=== PATIENT | female | born 1990 | race Caucasian/White ===

== ENCOUNTER 2016-07-29 21:10 | Emergency (ER) | payer OTHER ==
[2016-07-29 21:31] VITALS: BP 113/71; PULSE 70; RESP 18; TEMP 96.8
--- NOTE | 2016-07-29 21:50 | XR ---
Left hand HISTORY: Trauma and pain Reviews of the left hand No comparisons Bone mineralization, joint spaces and alignment are maintained IMPRESSION: No fracture or dislocation.
--- NOTE | 2016-07-29 22:00 | ED ---
Upper Extremity HPI - General Chief Complaint: Extremity Injury, Upper Stated Complaint: hand injury Time Seen by Provider: 07/29/16 21:32 Source: patient Mode of arrival: ambulatory Limitations: no limitations - History of Present Illness Initial Comments: Patient is a right-handed 25-year-old white female presenting to the emergency department with complaints of left hand pain. Patient states she was doing yard work at 11 AM this morning when a log rolled on her hand. Patient states that throughout the day the pain became aggressively worse and she wanted to make sure nothing was broken. Patient denies previous trauma or surgery to left upper extremity. Patient states she took some Motrin about 1:00 this afternoon with relief. Patient currently rates pain 6 out of 10, described as sore, exacerbated with movement and palpation, relieved with rest, denies numbness or tingling. Handedness: right Place: outdoors Severity scale (1-10): 7 Improves With: immobilization Worsens With: movement of extremity Associated Symptoms: denies other symptoms - Related Data Home Medications Medication Instructions Recorded Confirmed Levothyroxine Sodium [Synthroid] 100 mcg PO DAILY 06/08/14 04/20/15 Dextroamphetamine/Amphetamine 20 mg PO BID 04/20/15 04/20/15 [Adderall] Previous Rx's Medication Instructions Recorded Benzonatate [Tessalon] 200 mg PO TID PRN #20 cap 04/20/15 Allergies Allergy/AdvReac Type Severity Reaction Status Date / Time prochlorperazine maleate Allergy Unknown Verified 07/29/16 21:32 [From Compazine] Review of Systems ROS Statement: Those systems with pertinent positive or pertinent negative responses have been documented in the HPI. ROS Other: All systems not noted in ROS Statement are negative. Past Medical History Past Medical History: Thyroid Disorder Additional Past Medical History / Comment(s): Mild Anemia. known B-thalasemia minor. Rubella Non-Immune History of Any Multi-Drug Resistant Organisms: None Reported Past Surgical History: Cholecystectomy Additional Past Surgical History / Comment(s): Thyroidectomy Past Psychological History: ADD/ADHD, Anxiety Smoking Status: Never smoker Past Alcohol Use History: Occasional Past Drug Use History: None Reported General Exam - General Exam Comments Initial Comments: GENERAL: Pt awake and alert, well-appearing, well-nourished, and in no acute distress. HEAD: Atraumatic, normocephalic. EYES: Pupils equal, round, and reactive to light, sclera anicteric, conjunctiva are normal. ENT: Oropharynx clear without exudates. Moist mucous membranes. NECK:Normal range of motion, supple without lymphadenopathy or JVD. LUNGS: Breath sounds clear to auscultation bilaterally. No wheezes, rales, or rhonchi. HEART: Heart S1, S2, no S3 or S4. Regular rate and rhythm. No murmurs, rubs or gallops. ABDOMEN: Soft, nontender, nondistended, normoactive bowel sounds. No guarding, no rebound. No masses or organomegaly appreciated. EXTREMITIES: Palpable peripheral pulses. Ecchymosis noted to the dorsal left hand. NEUROLOGICAL: Pt oriented x 3. Cranial nerves II through XII grossly intact. Strength and sensation grossly intact. PSYCH: Normal mood, normal affect. SKIN: Warm, dry, intact. Limitations: no limitations Left Forearm Wrist exam: Present: normal inspection, full ROM. Absent: tenderness, swelling Hand Wrist exam: Present: full ROM, tenderness, swelling, ecchymosis. Absent: deformity, dislocation, erythema Neuro motor exam: Present: wrist extension intact, thumb opposition intact, thumb IP flexion intact, thumb adduction intact, fingers 2-5 abduction intact Neurosensory exam: Present: 2-point discrimination, radial nerve intact, ulnar nerve intact, median nerve intact Vascular: Present: vascular compromise, normal capillary refill, radial pulse, brachial pulse, ulnar pulse Course Vital Signs 07/29/16 21:27 Temperature 96.8 F L Pulse Rate 70 Respiratory 18 Rate Blood Pressure 113/71 O2 Sat by Pulse 100 Oximetry Medical Decision Making - Medical Decision Making Contusion to left hand. X-ray of left hand negative for fracture or dislocation. Patient instructed to follow-up with primary care physician or orthopedic surgeon if symptoms do not improve or get worse. Discharge instructions and return parameters reviewed with patient. Patient agrees with treatment plan. - Radiology Data Radiology results: report reviewed X-ray of left hand: No fracture or dislocation. As read by radiologist. Disposition Clinical Impression: Contusion of left hand Disposition: HOME SELF-CARE Condition: Good Instructions: Contusion in Adults (ED) Additional Instructions: Continue Motrin and Tylenol for swelling or pain. May continue ice 4 times a day for 10-15 minutes the next 2 days to decrease swelling. Follow-up with primary care physician as needed. Please return to the emergency department with any worsening symptoms. Referrals: Marco Amato MD [Primary Care Provider] - 1-2 days Shravan Vick DO [Doctor of Osteopathic Medicine] - 1-2 days (Follow-up as needed) Time of Disposition: 21:59
== END 2016-07-29 22:06 | disposition home or self-care (01) ==
LOC: EC 21:10
DX: S60.222A Contusion of left hand, initial encounter (principal); E07.9 Disorder of thyroid, unspecified; F90.9 Attention-deficit hyperactivity disorder, unspecified type; Z79.899 Other long term (current) drug therapy; Z88.8 Allergy status to other drugs, medicaments and biological substances; W20.8XXA Other cause of strike by thrown, projected or falling object, initial encounter; Y92.096 Garden or yard of other non-institutional residence as the place of occurrence of the external cause; Y93.H2 Activity, gardening and landscaping
CPT/HCPCS: 99283

== ENCOUNTER → 2017-07-18 | Outpatient (CLI) | payer OTHER ==
[2017-07-18 20:19] LABS: Appearance,Urine Cloudy (Clear); Bacteria,Urine Rare /hpf; Bilirubin,Urine Negative (Negative); Blood,Urine Negative (Negative); Color,Urine Yellow; Glucose,Urine (UA) Negative (Negative); Ketones,Urine Negative (Negative); Leukocyte Esterase,Urine Negative (Negative); Mucus,Urine Rare /hpf; Nitrite,Urine Negative (Negative); PH, Urine 5.5 (5.0-8.0); Protein,Urine Negative (Negative); RBC,Urine 1 /hpf (0-5); Specific Gravity,Urine 1.018 (1.001-1.035); Squamous Epithelial Cell,Urine 10 /hpf (0-4); Urobilinogen,Urine <2.0 mg/dL (<2.0); WBC,Urine 1 /hpf (0-5)
[2017-07-18 20:56] VITALS: BP 112/67; PULSE 78; RESP 16; TEMP 97
--- NOTE | 2017-08-11 10:21 | P.MSEPDOC ---
Presenting Problems - Arrival Data Date of Arrival on Unit: 07/18/17 Time of Arrival on Unit: 19:50 Mode of Transport: Ambulatory - Complaint Comment: Complaints of contractions. Medical History - Information : 2 Para: 1 Term: 1 : 0 Abortions: Spontaneous or Elective: 0 Number of Living Children: 1 - Gestational Age Gestational Age by VLADISLAV (wks/days): 24 Weeks and 1 Days Review of Systems - Review of Systems Constitutional: No problems Breast: No problems ENT: No problems Cardiovascular: No problems Respiratory: No problems Gastrointestinal: No problems Genitourinary: No problems Musculoskeletal: No problems Neurological: No problems Skin: No problems Vital Signs - Temperature Temperature: 97 F Temperature Source: Temporal Artery Scan - Pulse Right Brachial Pulse Rate: 78 Pulse Assessment Method: Automatic Cuff - Respirations Respiratory Rate: 16 Oxygen Delivery Method: Room Air - Blood Pressure Right Arm Blood Pressure: 112/67 Blood Pressure Mean: 82 Blood Pressure Source: Automatic Cuff Medical Screen Scoring (Pre) - Cervical Exam Dilation: Exam Deferred Effacement: Exam Deferred Membranes: Intact - Uterine Contractions Frequency: N/A Duration: N/A Intensity: N/A - Maternal Vital Signs Maternal Temperature: N/A Maternal Blood Pressure: N/A Signs of Preeclampsia: N/A Maternal Respirations: N/A - Pain Assessment Pain Scale Used: Numeric (1 - 10) Pain Intensity: 0 - Assessment Baseline FHR: 140 Heart Rate - NICHD Category: Category I (Normal) = 0 Position: N/A Station: N/A - Total Score Total Score (Pre): 0 - Level of Risk Level of Risk: Low (0-5) Physician Notification (Pre) - Physician Notified Physician Notified Date: 07/18/17 Physician Notified Time: 20:28 Physician/Practitioner Notifed:: Dr. Griffith Spoke With: Dr. Griffith New Order Received: Yes - Notification Comment Comment: agree with RNs assessment Disposition - Disposition OB Disposition: Discharge to home, Written follow up instructions reviewed Discharge Date: 07/18/17 Discharge Time: 20:30 I agree with the RN Medical Screening Exam: Yes Risk & Benefit of care provided described in d/c instruction: Yes Diagnosis: RELATED CONDITIONS, UNSPECIFIED, SECOND TRIMESTER
== END | disposition home or self-care (01) ==
LOC: FBPOP 19:50
PROVIDERS: ATTEND Obstetrics & Gynecology
DX: O26.92 Pregnancy related conditions, unspecified, second trimester (principal); Z3A.24 24 weeks gestation of pregnancy
CPT/HCPCS: 81001; G0463; 99213

== ENCOUNTER 2017-07-29 08:59 | Outpatient (CLI) | payer OTHER ==
[2017-07-29 10:30] VITALS: BP 122/62; PULSE 80; RESP 16; TEMP 97.6
--- NOTE | 2017-08-11 10:27 | P.MSEPDOC ---
Presenting Problems - Arrival Data Date of Arrival on Unit: 07/29/17 Time of Arrival on Unit: 09:06 Mode of Transport: Wheelchair - Complaint OB-Reason for Admission/Chief Complaint: Pain Comment: lower abd pain and pressure. 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 pain scale 10 today. on pastc/s incision line incision line Vital Signs - Temperature Temperature: 97.6 F Temperature Source: Tympanic - Pulse Right Radial Pulse Rate: 80 Pulse Assessment Method: Automatic Cuff - Respirations Respiratory Rate: 16 Oxygen Delivery Method: Room Air - Blood Pressure Right Arm Blood Pressure: 122/62 Blood Pressure Mean: 82 Blood Pressure Source: Automatic Cuff Medical Screen Scoring (Pre) - Cervical Exam Dilation: Exam Deferred - Uterine Contractions Frequency: N/A - Maternal Vital Signs Maternal Temperature: N/A Maternal Blood Pressure: N/A Signs of Preeclampsia: N/A Maternal Respirations: N/A - Pain Assessment Pain Location and Character: Lower, Abdomen Pain Scale Used: Numeric (1 - 10) Pain Description: *Acute, Burning, Pressure Pain Frequency: Constant Pain Duration: 10 Pain Behavior: Facial Grimacing, Guarding, Moving Slowly Pain Aggravating Factors: Standing, Walking Pharmacological Interventions: Discuss Pain Med Options, PRN Medication - Maternal Trauma Maternal Trauma: N/A - Assessment Baseline FHR: 140 Heart Rate - NICHD Category: Category I (Normal) = 0 NST: Reactive - Total Score Total Score (Pre): 0 - Level of Risk Level of Risk: Low (0-5) Physician Notification (Pre) - Physician Notified Physician Notified Date: 07/29/17 Physician Notified Time: 10:10 Physician/Practitioner Notifed:: beena Spoke With: beena New Order Received: Yes - Notification Comment Comment: home off work next couple of days. if not emproving to call office or return to triage. warm to lower abd, tylenol prn Disposition - Disposition OB Disposition: Discharge to home Discharge Date: 07/29/17 Discharge Time: 10:20 I agree with the RN Medical Screening Exam: Yes Risk & Benefit of care provided described in d/c instruction: Yes Diagnosis: RELATED CONDITIONS, UNSPECIFIED, SECOND TRIMESTER
== END 2017-07-29 10:20 | disposition home or self-care (01) ==
LOC: FBPOP 08:59
PROVIDERS: ATTEND Obstetrics & Gynecology
DX: O26.93 Pregnancy related conditions, unspecified, third trimester (principal); R10.30 Lower abdominal pain, unspecified; Z3A.25 25 weeks gestation of pregnancy
CPT/HCPCS: 99213

== ENCOUNTER 2017-10-10 16:25 | Outpatient (CLI) | payer OTHER ==
[2017-10-10 16:54] VITALS: BP 117/71; PULSE 99; RESP 16; TEMP 97.4
--- NOTE | 2017-11-05 12:25 | P.MSEPDOC ---
Presenting Problems - Arrival Data Date of Arrival on Unit: 10/10/17 Time of Arrival on Unit: 16:30 Mode of Transport: Wheelchair - Complaint OB-Reason for Admission/Chief Complaint: Possible Onset of Labor Medical History - Information : 2 Para: 1 Term: 1 : 0 Abortions: Spontaneous or Elective: 0 Number of Living Children: 1 - Gestational Age Gestational Age by VLADISLAV (wks/days): 36 Weeks and 1 Days - History Complications: Prior Review of Systems - Review of Systems Constitutional: No problems Breast: No problems ENT: No problems Cardiovascular: No problems Respiratory: No problems Gastrointestinal: No problems Genitourinary: No problems Musculoskeletal: No problems Neurological: No problems Skin: No problems Vital Signs - Temperature Temperature: 97.4 F Temperature Source: Temporal Artery Scan - Pulse Right Sitting Brachial Pulse Rate: 99 Pulse Assessment Method: Pulse Oximetry - Respirations Respiratory Rate: 16 Oxygen Delivery Method: Room Air O2 Sat by Pulse Oximetry: 98 - Blood Pressure Right Arm Sitting Blood Pressure: 117/71 Blood Pressure Mean: 86 Blood Pressure Source: Automatic Cuff Medical Screen Scoring (Pre) - Cervical Exam Dilation: 0 cm = 0 Membranes: Intact - Uterine Contractions Frequency: > 5 minutes apart = 1 Duration: N/A Intensity: N/A - Maternal Vital Signs Maternal Temperature: N/A Maternal Blood Pressure: N/A Signs of Preeclampsia: N/A Maternal Respirations: N/A - Pain Assessment Pain Location and Character: Lower, Abdomen Pain Scale Used: Numeric (1 - 10) Pain Intensity: 9 Pain Management Goal: 0 Pain Description: Cramping Pain Radiation Location: 0 Pain Frequency: Occasional Pain Duration: 2 Pain Duration Units: Days Pain Behavior: Facial Grimacing Effects of Pain: 0 Pain Aggravating Factors: None - Maternal Trauma Maternal Trauma: N/A - Assessment Baseline FHR: 135 Heart Rate - NICHD Category: Category I (Normal) = 0 Position: N/A Station: N/A - Total Score Total Score (Pre): 1 - Level of Risk Level of Risk: Low (0-5) Physician Notification (Pre) - Physician Notified Physician Notified Date: 10/10/17 Physician Notified Time: 17:24 Physician/Practitioner Notifed:: Dr North Spoke With: Dr North New Order Received: Yes - Notification Comment Comment: orders for discharge at this time, pelvic rest until next OB appt., increase oral hydration. Disposition - Disposition OB Disposition: Discharge to home Discharge Date: 10/10/17 Discharge Time: 17:33 I agree with the RN Medical Screening Exam: Yes Risk & Benefit of care provided described in d/c instruction: Yes Diagnosis: RELATED CONDITIONS, UNSPECIFIED, THIRD TRIMESTER
== END 2017-10-10 17:33 | disposition home or self-care (01) ==
LOC: FBPOP 16:25
PROVIDERS: ATTEND Obstetrics & Gynecology
DX: O26.93 Pregnancy related conditions, unspecified, third trimester (principal); Z3A.36 36 weeks gestation of pregnancy
CPT/HCPCS: 59025; G0463; 99213

== ENCOUNTER 2017-10-16 12:09 | Outpatient (CLI) | payer OTHER ==
[2017-10-16 12:49] LABS: Appearance,Urine Cloudy (Clear); Bacteria,Urine Occasional /hpf; Bilirubin,Urine Negative (Negative); Blood,Urine Negative (Negative); Color,Urine Yellow; Glucose,Urine (UA) Negative (Negative); Ketones,Urine Negative (Negative); Leukocyte Esterase,Urine Moderate (Negative); Mucus,Urine Rare /hpf; Nitrite,Urine Negative (Negative); PH, Urine 6.5 (5.0-8.0); Protein,Urine Negative (Negative); RBC,Urine <1 /hpf (0-5); Specific Gravity,Urine 1.015 (1.001-1.035); Squamous Epithelial Cell,Urine 3 /hpf (0-4); Urobilinogen,Urine <2.0 mg/dL (<2.0); WBC,Urine 1 /hpf (0-5)
[2017-10-16 14:13] VITALS: BP 129/69; PULSE 83; RESP 18; TEMP 97.1
--- NOTE | 2017-11-09 12:40 | P.MSEPDOC ---
Presenting Problems - Arrival Data Date of Arrival on Unit: 10/16/17 Time of Arrival on Unit: 12:09 Mode of Transport: Wheelchair - Complaint OB-Reason for Admission/Chief Complaint: Pain Comment: severe back pain Medical History - Information : 3 Para: 1 Term: 1 : 0 Abortions: Spontaneous or Elective: 1 Number of Living Children: 1 - Gestational Age Gestational Age by VLADISLAV (wks/days): 37 Weeks and 0 Days Review of Systems - Review of Systems Constitutional: No problems Breast: No problems ENT: No problems Cardiovascular: No problems Respiratory: No problems Gastrointestinal: No problems Genitourinary: No problems Musculoskeletal: No problems Neurological: No problems Skin: No problems Vital Signs - Temperature Temperature: 97.1 F Temperature Source: Temporal Artery Scan - Pulse Right Brachial Pulse Rate: 83 - Respirations Respiratory Rate: 18 Oxygen Delivery Method: Standby - Blood Pressure Right Arm Blood Pressure: 129/69 Blood Pressure Mean: 89 Medical Screen Scoring (Pre) - Cervical Exam Dilation: Exam Deferred Effacement: Exam Deferred Membranes: Intact - Uterine Contractions Frequency: N/A Duration: N/A Intensity: N/A - Maternal Vital Signs Maternal Temperature: N/A Signs of Preeclampsia: N/A Maternal Respirations: N/A - Pain Assessment Pain Location and Character: Back Pain Scale Used: Numeric (1 - 10) Pain Intensity: 10 Pain Management Goal: 4 Pain Description: *Acute Pain Frequency: Constant Pain Duration: 1 Pain Duration Units: Days Pain Behavior: Fidgeting, Vocalization Pain Aggravating Factors: Activity Non-Pharmacological Interventions: Heat, Meditation - Maternal Trauma Maternal Trauma: N/A - Assessment Baseline FHR: 135 Heart Rate - NICHD Category: Category I (Normal) = 0 NST: Reactive Position: Non-vertex & not laboring = 3 Station: N/A - Total Score Total Score (Pre): 3 - Level of Risk Level of Risk: Low (0-5) Physician Notification (Pre) - Physician Notified Physician Notified Date: 10/16/17 Physician Notified Time: 14:00 Physician/Practitioner Notifed:: Dr. Griffith Spoke With: Dr. Griffith New Order Received: Yes - Notification Comment Comment: Discharge pt home, use heat and tylenol as needed, try to see chiropractor Disposition - Disposition OB Disposition: Discharge to home, Written follow up instructions reviewed Discharge Date: 10/16/17 Discharge Time: 14:06 I agree with the RN Medical Screening Exam: Yes Risk & Benefit of care provided described in d/c instruction: Yes Diagnosis: RELATED CONDITIONS, UNSPECIFIED, THIRD TRIMESTER
== END 2017-10-16 14:06 | disposition home or self-care (01) ==
LOC: FBPOP 12:09
PROVIDERS: ATTEND Obstetrics & Gynecology
DX: O26.93 Pregnancy related conditions, unspecified, third trimester (principal); Z3A.37 37 weeks gestation of pregnancy
CPT/HCPCS: 59025; 81001; G0463; 99213

== ENCOUNTER 2017-10-30 09:35 | Inpatient (IN) | payer OTHER ==
[2017-10-25 11:33] VITALS: BMI 32.1
[2017-10-30] MEDS ORDERED: CITRIC ACID-SODIUM CITRATE 15 ML CUP PO ONE (10:37)
[2017-10-30] MEDS ORDERED: LACTATED RINGERS 1,000 ML IV ONE (10:37)
[2017-10-30] MEDS ORDERED: ceFAZolin IN SWFI 2 GM/20 ML SYRINGE IVP ONE (10:37)
[2017-10-30] MEDS ORDERED: LACTATED RINGERS 1,000 ML IV SCH ×2 (10:45→13:15)
[2017-10-30 10:50] LABS: Anisocytosis Slight; Basophils % (A) 0 %; Eosinophils # (A) 0.1 k/uL (0-0.7); Eosinophils % (A) 1 %; HCT 28.7 % (34.0-46.0); HGB 8.6 gm/dL (11.4-16.0); Hypochromasia Marked; Lymphocytes # (A) 1.7 k/uL (1.0-4.8); Lymphocytes % (A) 19 %; MCH 18.7 pg (25.0-35.0); MCV 62.4 fL (80.0-100.0); Mean Platelet Volume 6.6; Microcytosis Marked; Monocytes # (A) 0.5 k/uL (0-1.0); Monocytes % (A) 5 %; Neutrophils # (A) 6.2 k/uL (1.3-7.7); Neutrophils % (A) 72 %; Platelet Count 118 k/uL (150-450); Poikilocytosis Moderate; RDW 17.7 % (11.5-15.5); WBC 8.7 k/uL (3.8-10.6)
[2017-10-30] MEDS ORDERED: LACTATED RINGERS 1,000 ML BAG IV ONE (12:02)
[2017-10-30] MEDS ORDERED: NALBUPHINE 10 MG/ML VIAL (10ML MDV) ONE (12:02)
[2017-10-30] MEDS ORDERED: ePHEDrine SULFATE/0.9% NACL/PF 50 MG/5 ML SYRINGE IV ONE (12:02)
[2017-10-30] MEDS ORDERED: METHYLERGONOVINE 0.2 MG/ML 1 ML AMP ONE (12:02)
[2017-10-30] MEDS ORDERED: OXYTOCIN 10 UNIT/ML 1 ML VIAL ONE (12:02)
[2017-10-30] MEDS ORDERED: ONDANSETRON 4 MG/2 ML VIAL ONE (12:02)
[2017-10-30] MEDS ORDERED: SCOPOLAMINE 1.5MG/72HR PATCH TRANSDERM ONE (12:02)
[2017-10-30] MEDS ORDERED: MORPHINE SULFATE (PF) 0.3 MG/0.3 ML SYR ONE (12:02)
[2017-10-30] MEDS ORDERED: diphenhydrAMINE 25 MG CAP PO PRN (13:13)
[2017-10-30] MEDS ORDERED: METOCLOPRAMIDE 5 MG/ML 2 ML VIAL IVP PRN (13:13)
[2017-10-30] MEDS ORDERED: SIMETHICONE 80 MG CHEWABLE PO PRN (13:13)
[2017-10-30] MEDS ORDERED: diphenhydrAMINE 50 MG CAP PO PRN (13:13)
[2017-10-30] MEDS ORDERED: NALOXONE 0.4 MG/ML 1 ML VIAL IV PRN (13:13)
[2017-10-30] MEDS ORDERED: ACETAMINOPHEN TAB 325 MG TAB PO PRN (13:13)
[2017-10-30] MEDS ORDERED: HYDROcodone/APAP 7.5-325MG 1 EACH TAB PO PRN (13:13)
[2017-10-30] MEDS ORDERED: diphenhydrAMINE 50 MG/ML 1 ML VIAL IVP PRN ×2 (13:13)
[2017-10-30] MEDS ORDERED: ONDANSETRON 4 MG/2 ML VIAL IVP PRN (13:13)
[2017-10-30] MEDS ORDERED: ZOLPIDEM 5 MG TAB PO PRN (13:13)
[2017-10-30] MEDS ORDERED: OXYTOCIN 20 UNITS/1000 ML NS 1,000 ML IV SCH (13:15)
--- NOTE | 2017-10-30 13:20 | P.HPOB ---
History of Present Illness H&P Date: 10/30/17 Chief Complaint: 39-0/7 weeks, previous section, undesired fertility The patient is a 26-year-old 3 para 1011 admitted at 39-0/7 weeks as established by 10 week ultrasound. She is admitted for repeat low transverse section with intraoperative bilateral tubal occlusion using Filshie clips. Risks and complications admitted thoroughly discussed. She has signed consent for these procedures in the office. Her has been entirely uncomplicated and group B strep status is negative. She does carry a history of beta thalassemia minor which causes chronic anemia which has continued to be present during the . Obstetrical history: 3 para 1011 with 1 term delivery for arrest of dilation and descent and one early spontaneous AB resulting in D&C. Current statistics are listed in history present illness. EDC of 04/2017 was established by 10 week ultrasound. Laboratory workup demonstrates a blood type of O+ with a negative antibody screen. Rubella status is immune. All other laboratory workup was within normal limits aside from the aforementioned mild anemia. One hour Glucola was normal and group B strep status is negative. Gynecologic history: Unremarkable with no history of any infections to include STDs. Review of Systems Review of systems is confined to history of present illness. Past Medical History Past Medical History: GERD/Reflux, Thyroid Disorder Additional Past Medical History / Comment(s): Mild Anemia. known B-thalasemia minor History of Any Multi-Drug Resistant Organisms: None Reported Past Surgical History: Adenoidectomy, Section, Cholecystectomy, Tonsillectomy Additional Past Surgical History / Comment(s): partial Thyroidectomy Past Anesthesia/Blood Transfusion Reactions: Postoperative Nausea & Vomiting ( PONV) Past Psychological History: ADD/ADHD, Anxiety Smoking Status: Never smoker Past Alcohol Use History: None Reported Past Drug Use History: None Reported - Past Family History Mother Family Medical History: No Reported History Medications and Allergies Home Medications Medication Instructions Recorded Confirmed Type Omeprazole [PriLOSEC] 40 mg PO DAILY 10/10/17 10/30/17 History Acetaminophen [Tylenol] 500 mg PO Q4-6H PRN 10/30/17 10/30/17 History Allergies Allergy/AdvReac Type Severity Reaction Status Date / Time prochlorperazine maleate Allergy Unknown Verified 10/25/17 11:22 [From Compazine] Exam Vital Signs Temp Pulse Resp BP Pulse Ox 10/30/17 12:59 96.9 F L 85 18 129/61 98 10/30/17 10:29 97.6 F 91 18 98 Intake and Output 10/29/17 10/30/17 10/30/17 22:59 06:59 14:59 Other: Voiding Method Indwelling Catheter In general, this is a well-developed, well-nourished white female in no acute distress. Her heart has a regular rhythm and rate without murmur. Her lungs are clear to auscultation bilaterally in all servin. Her abdomen is gravid, nondistended, has normal active bowel sounds, is soft, nontender, and without any palpable masses aside from uterine fundus. Her extremities are without any cyanosis, clubbing, or significant edema and are nontender to palpation bilaterally. Digital cervical examination is deferred. Results Result Diagrams: 10/30/17 10:33 Abnormal Lab Results - Last 24 Hours (Table) 10/30/17 Range/Units 10:33 Hgb 8.6 L (11.4-16.0) gm/dL Hct 28.7 L (34.0-46.0) % MCV 62.4 L (80.0-100.0) fL MCH 18.7 L (25.0-35.0) pg MCHC 30.0 L (31.0-37.0) g/dL RDW 17.7 H (11.5-15.5) % Plt Count 118 L (150-450) k/uL Assessment and Plan (1) Term Current Visit: Yes Status: Acute Code(s): Z34.80 - ENCOUNTER FOR SUPRVSN OF NORMAL , UNSP TRIMESTER SNOMED Code(s): 78384358 (2) Previous section Current Visit: Yes Status: Acute Code(s): Z98.891 - HISTORY OF UTERINE SCAR FROM PREVIOUS SURGERY SNOMED Code(s): 491828086 (3) Family planning Current Visit: Yes Status: Acute Code(s): Z30.09 - ENCOUNTER FOR OT GENERAL CNSL AND ADVICE ON CONTRACEPTION SNOMED Code(s): 841646342 Plan: The patient is admitted for repeat low transverse section with intraoperative bilateral tubal occlusion using Filshie clips. There is some complications have been thoroughly discussed and she has understood and agreed to proceed. She understands the permanent nature of tubal ligation and has reiterated on multiple occasions her desire for this procedure.
--- NOTE | 2017-10-30 13:26 | P.OP ---
Date of Procedure: 10/30/17 Preoperative Diagnosis: #1. 39-0/7 weeks, previous section #2. Undesired fertility Postoperative Diagnosis: Same Procedure(s) Performed: #1. Repeat low transverse section #2. Intraoperative bilateral tubal occlusion with Filshie clips Anesthesia: spinal Surgeon: Beau Griffith Student Specialist #1: Aleah Cervantes Estimated Blood Loss (ml): 800 IV fluids (ml): 1,100 Urine output (ml): 250 Pathology: none sent Condition: stable Disposition: PACU Operative Findings: Intraoperatively, there was a mild to moderate amount of scarring at the level of the fascia and rectus muscles. The patient was delivered of a viable 7 lbs. 12 oz. baby boy with Apgars of 10 at 1 minute and 10 at 5 minutes. There was a loose nuchal cord 1 which was reduced after delivery of the head. The placenta was delivered manually, intact, and grossly normal with a grossly normal three-vessel cord. The uterus, tubes, and ovaries were entirely normal to inspection. Description of Procedure: The patient was prepped and draped in usual fashion after spinal anesthesia was administered by the anesthesiologist. A Pfannenstiel incision was made through pre-existing scar and extended into the abdominal cavity without difficulty. Minimal scarring was found at the level of the fascia and rectus muscles. The bladder peritoneum was elevated, incised, and reflected distally. A 2 cm incision was made in the transverse plane of the lower uterine segment to enter the uterus at which time clear fluid was noted. The incision was extended in both directions with bandage scissors and then somewhat bluntly. The head was delivered up and through the incision where the nose and mouth were thoroughly suctioned. A nuchal cord was reduced 1. The remainder of the was delivered onto the abdomen where the cord was doubly clamped, cut, and the passed for resuscitative measures with weight and Apgars as noted above. A segment of cord was doubly clamped, cut, and set aside should cord gases become necessary. The placenta was delivered manually and intact as noted above. Uterus was exteriorized and the interior cavity of the uterus swept of any remaining placental or membranous fragments. The margins of the incision were grasped with Lopez clamps and the incision closed in a single running locking stitch of 0 chromic catgut from margin to margin. Following closure, a portion of the incision on the right side near the angle was noted to be bleeding still and made hemostatic with a [id number] stitch of 0 chromic catgut. The posterior cul-de-sac was then suctioned with a guard. After reaffirming with the patient her desire for tubal ligation, a Filshie clip was placed across the isthmic portion of the fallopian tube on each side approximately 3 cm from the cornu of the uterus and firmly closed. This was carried out bilaterally. The uterus was replaced within the abdominal cavity after suctioning the posterior cul-de-sac with a guard and the gutters were swept of any remaining blood, fluid or clot. The incision was reexamined and any small points of bleeding made hemostatic with the Bovie. Once hemostasis was confirmed, the parietal peritoneum was loosely reapproximated in the layer of muscles examined and made hemostatic with the Bovie. The fascia was closed with a single running stitch of 0 Vicryl proceeding from margin to margin. The subcutaneous tissues were irrigated, made hemostatic with the Bovie , and reapproximated with a running stitch of 30 plain catgut. The skin was reapproximated with a running subcuticular stitch of 4-0 Vicryl proceeding from margin to margin. This was followed by placement of half-inch Steri-Strips with Mastisol. Estimated blood loss for the entire case was approximately 800 mL, primarily at secondary to some initial uterine atony which was resolved by giving Methergine intraoperatively. All sponge, instrument, and needle counts were correct. There were no complications. The patient tolerated the procedure well and proceeded to the recovery room in stable condition. Both mother and infant are resting comfortably in recovery.
[2017-10-30] MEDS: KETOROLAC 30 MG/ML 1 ML VIAL IVP PRN ×2 (13:37→20:44)
[2017-10-30] MEDS: SENNOSIDES-DOCUSATE SODIUM 1 EACH TAB PO SCH (20:44)
[2017-10-31] MEDS ORDERED: KETOROLAC 30 MG/ML 1 ML VIAL ONE (03:40)
--- NOTE | 2017-10-31 07:27 | P.PN ---
Progress Note - Text Postop day 1 from under spinal anesthesia with intrathecal morphine given for postop pain management. Patient is doing well. Pain is well controlled. On visual analog scale 3/10 Mild itching present No nausea or vomiting reported. No Headache or weakness and numbness in the legs. No complications from spinal anesthesia.
[2017-10-31 07:41] LABS: Anisocytosis Slight; Basophils % (A) 0 %; Eosinophils # (A) 0.1 k/uL (0-0.7); Eosinophils % (A) 1 %; HCT 22.8 % (34.0-46.0); Hypochromasia Marked; Lymphocytes # (A) 1.4 k/uL (1.0-4.8); Lymphocytes % (A) 12 %; MCHC 30.8 g/dL (31.0-37.0); MCV 61.6 fL (80.0-100.0); Microcytosis Marked; Monocytes # (A) 0.8 k/uL (0-1.0); Monocytes % (A) 7 %; Neutrophils # (A) 9.1 k/uL (1.3-7.7); Neutrophils % (A) 79 %; Platelet Count 99 k/uL (150-450); Poikilocytosis Slight; RDW 17.7 % (11.5-15.5); WBC 11.6 k/uL (3.8-10.6)
[2017-10-31] MEDS: HYDROcodone/APAP 5-325MG 1 EACH TAB PO PRN ×3 (08:07→19:37)
[2017-10-31] MEDS: SENNOSIDES-DOCUSATE SODIUM 1 EACH TAB PO SCH ×2 (08:09→19:37)
--- NOTE | 2017-10-31 08:39 | P.PNOBGPC ---
Subjective - Subjective Patient reports: Reports appetite normal, Reports voiding normally, Reports pain well controlled, Reports ambulating normally : doing well Objective - Vital Signs Latest vital signs: Vital Signs Temp Pulse Resp BP Pulse Ox 10/31/17 08:00 98.2 F 80 18 111/74 99 10/30/17 20:00 98 F 81 16 116/68 97 10/30/17 14:59 96.2 F L 88 18 110/64 99 10/30/17 14:29 97.3 F L 78 18 117/73 10/30/17 13:59 90 18 129/74 98 10/30/17 13:44 96.7 F L 80 18 127/72 98 10/30/17 13:29 66 18 115/65 98 10/30/17 13:14 106 H 18 114/55 10/30/17 12:59 96.9 F L 85 18 129/61 98 10/30/17 10:29 97.6 F 91 18 98 Intake and Output 10/30/17 10/31/17 10/31/17 22:59 06:59 14:59 Intake Total 900 Output Total 350 Balance 550 Intake: Intake, IV Titration 900 Amount Oxytocin 20 Units/1000 ml 900 Ns 1,000 ml @ Per Protocol IV .Q0M [facility] Rx#: [id number] Output: Urine 350 Uretheral (Nolasco) 350 Other: Voiding Method Indwelling Catheter # Voids 1 - Exam Extremities: Present: normal Abdomen: Present: normal appearance, soft. Absent: distention, tenderness Incision: Present: normal, dry, intact Uterus: Present: normal, firm (The uterine fundus is tonic and nontender below the umbilicus.) - Labs Labs: Abnormal Lab Results - Last 24 Hours (Table) 10/30/17 10/31/17 Range/Units 10:33 07:04 WBC 11.6 H (3.8-10.6) k/uL RBC 3.70 L (3.80-5.40) m/uL Hgb 8.6 L 7.0 L* D (11.4-16.0) gm/dL Hct 28.7 L 22.8 L (34.0-46.0) % MCV 62.4 L 61.6 L (80.0-100.0) fL MCH 18.7 L 19.0 L (25.0-35.0) pg MCHC 30.0 L 30.8 L (31.0-37.0) g/dL RDW 17.7 H 17.7 H (11.5-15.5) % Plt Count 118 L 99 L (150-450) k/uL Neutrophils # 9.1 H (1.3-7.7) k/uL Assessment and Plan (1) Term Current Visit: Yes Status: Acute Code(s): Z34.80 - ENCOUNTER FOR SUPRVSN OF NORMAL , UNSP TRIMESTER SNOMED Code(s): 96549068 (2) Previous section Current Visit: Yes Status: Acute Code(s): Z98.891 - HISTORY OF UTERINE SCAR FROM PREVIOUS SURGERY SNOMED Code(s): 931093542 (3) Family planning Current Visit: Yes Status: Acute Code(s): Z30.09 - ENCOUNTER FOR OT GENERAL CNSL AND ADVICE ON CONTRACEPTION SNOMED Code(s): 517442350 (4) delivery delivered Current Visit: No Status: Acute Comment: Routine care. Discharge home today , remove antonio prior to discharge. F/U 2 wk/6 wk. Instructions given. Will check with Hematology regarding iron supplementation in the case of beta thalassemia, no sxs from anemia. Code(s): O82 - ENCOUNTER FOR DELIVERY WITHOUT INDICATION SNOMED Code(s): 747170365 Plan: Continue routine postoperative care. I would anticipate discharge home tomorrow pending complications. I have strongly encouraged the patient to ambulate in the halls routinely. She has been found to be significantly anemic but has known beta thalassemia minor leading to chronic anemia in the presurgical scenario. As she is asymptomatic we will continue to follow her symptoms and encouraged her to use iron sulfate when she leaves the hospital.
[2017-10-31] MEDS: KETOROLAC 30 MG/ML 1 ML VIAL IVP PRN (12:14)
[2017-10-31] MEDS: IBUPROFEN 600 MG TAB PO PRN (17:55)
[2017-11-01] MEDS: IBUPROFEN 600 MG TAB PO PRN ×2 (00:05→07:44)
[2017-11-01] MEDS: HYDROcodone/APAP 5-325MG 1 EACH TAB PO PRN ×2 (04:06→09:01)
[2017-11-01] MEDS: SENNOSIDES-DOCUSATE SODIUM 1 EACH TAB PO SCH (07:45)
[2017-11-01 10:25] VITALS: BP 117/76; PULSE 86; RESP 20; TEMP 98.3
--- NOTE | 2017-11-01 11:10 | P.DS ---
Providers Date of admission: 10/30/17 10:07 Expected date of discharge: 11/01/17 Attending physician: Beau Griffith Primary care physician: Stated None - Discharge Diagnosis(es) (1) Term Current Visit: Yes Status: Acute (2) Previous section Current Visit: Yes Status: Acute (3) Family planning Current Visit: Yes Status: Acute (4) delivery delivered Current Visit: No Status: Acute Hospital Course: The patient is a 26-year-old 3 para 1011 admitted at 39-0/7 weeks by good dating parameters [facility] admitted for repeat low transverse section with intraoperative tubal ligation using Filshie clips. 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 On labor and delivery, all signs reassuring. She was taken to the operating room where she was delivered of a viable 7 lbs. 12 oz. baby boy with Apgars of 10 at 1 minute and 10 at 5 minutes. Her postoperative course was unremarkable vital signs are many stable and her temperature was afebrile throughout. She was deemed stable for discharge on postoperative day #2 was discharged home to follow-up in the office in 2 weeks for an incision check and 6 weeks routinely. Discharge instructions included calling for any significantly increased bleeding or foul-smelling lochia, significantly increased fever or abdominal pain, perineal complaints, breast complaints, incisional complaints, or anything else that concerned her. She was additionally instructed to have nothing in the vagina for at least 6 weeks time to include intercourse and to abstain from any heavy lifting over the same period of time. She was last instructed to do no driving until off of all pain medications or 2 weeks' time, whichever came first. She understood her instructions and agrees to follow up as noted above. Discharge medications included [id number] analgesic pain medications as well as a prescription for [place] 5/325 mg, 1-2 by mouth every 6 hours when necessary pain, #20 dispensed with no refills. Maternal blood type is O+ and rubella status is immune. Discharge hemoglobin and hematocrit were 7.0 and 22.8 respectively. The patient otherwise is asymptomatic and will be discharged home to take iron sulfate to attempt to increase her hemoglobin. Her preoperative hemoglobin was 8.6. Procedures: #1. Repeat low transverse section #2. Intraoperative bilateral tubal occlusion with Filshie clips Patient Condition at Discharge: Stable Plan - Discharge Summary New Discharge Prescriptions: No Action Omeprazole [PriLOSEC] 40 mg PO DAILY Acetaminophen [Tylenol] 500 mg PO Q4-6H PRN PRN Reason: Pain Discharge Medication List Omeprazole [PriLOSEC] 40 mg PO DAILY 10/10/17 [History] Acetaminophen [Tylenol] 500 mg PO Q4-6H PRN 10/30/17 [History] Follow up Appointment(s)/Referral(s): Beau Griffith MD [STAFF PHYSICIAN] - 2 Weeks Discharge Disposition: HOME SELF-CARE
== END 2017-11-01 13:45 | disposition home or self-care (01) | DRG 766 ==
LOC: 4FBP 10:07
PROVIDERS: ADMIT Obstetrics & Gynecology; ATTEND Obstetrics & Gynecology
PROC: 0UL70CZ Occlusion of Bilateral Fallopian Tubes with Extraluminal Device, Open Approach (ICD-10-PCS; 2017-10-30)
PROC: 10D00Z1 Extraction of Products of Conception, Low, Open Approach (ICD-10-PCS; principal; 2017-10-30 12:00)
DX: O34.211 Maternal care for low transverse scar from previous cesarean delivery (principal); O62.2 Other uterine inertia; O69.81X0 Labor and delivery complicated by cord around neck, without compression, not applicable or unspecified; O99.02 Anemia complicating childbirth; D56.3 Thalassemia minor; O99.284 Endocrine, nutritional and metabolic diseases complicating childbirth; E89.0 Postprocedural hypothyroidism; O99.62 Diseases of the digestive system complicating childbirth; K21.9 Gastro-esophageal reflux disease without esophagitis; N85.8 Other specified noninflammatory disorders of uterus; Z37.0 Single live birth; Z30.2 Encounter for sterilization; Z3A.39 39 weeks gestation of pregnancy; Z79.899 Other long term (current) drug therapy; Z86.59 Personal history of other mental and behavioral disorders; Z90.49 Acquired absence of other specified parts of digestive tract
CPT/HCPCS: 85025; 86850; 86900; 86901

== ENCOUNTER → 2018-04-23 | Outpatient (CLI) | payer OTHER ==
--- NOTE | 2018-04-23 08:54 | CT ---
EXAMINATION TYPE: CT soft tissue neck w con DATE OF EXAM: 04/23/2018 HISTORY: Enlarged thyroid and lump to back of neck, history of prior thyroid surgery COMPARISON: CT neck March 20, 2012. Thyroid ultrasound May 06, 2014 CT DLP: 292.6 mGycm. Automated Exposure Control for Dose Reduction was Utilized. TECHNIQUE: CT scan of the neck is performed with IV Contrast, patient injected with 100 mL of Isovue 300, axial images are obtained, coronal and sagittal reformatted images are reviewed. FINDINGS: Airway: Small amount of thyroid tissue posterior right thyroid bed abuts trachea axial image 28 measu ring 4 x 5 mm. Airway is patent. Left thyroid lobe is unremarkable. Parotid/submandibular glands: No gross abnormality seen. Carotid/Vascular Structures: Dominant right vertebral artery is redemonstrated. Vertebral arteries ar e patent to basilar junction. No significant plaque or stenosis at carotid bulb level is seen. Osseous Structures: Stable reversal of normal cervical curvature identified with slight levoconvex sc oliosis centered in the upper thoracic spine again seen. Other: A metallic BB is placed at level of palpable abnormality posterior neck just right of midline axial image 53. No suspicious solid or cystic mass or abnormal fluid collection is identified at this level. No suspicious skin thickening is seen. There are scattered subcentimeter lymph nodes throughout the neck bilaterally. No suspicious greater than 1 cm neck adenopathy is seen. Parapharyngeal fat spaces are symmetric and maintained. IMPRESSION: 1. No suspicious mass identified to correlate with palpable abnormality posterior neck just right of midline at roughly C3 vertebral body level. 2. Tiny amount of thyroid tissue right thyroid bed noted not clearly seen on 2015 ultrasound needs to be correlated clinically with reason for prior thyroid surgery.
== END | disposition home or self-care (01) ==
LOC: RADCTMAIN 08:02
PROVIDERS: ATTEND Family Medicine
DX: E04.9 Nontoxic goiter, unspecified (principal)
CPT/HCPCS: 70491; Q9967

== ENCOUNTER → 2018-05-23 | Outpatient (CLI) | payer OTHER ==
--- NOTE | 2018-05-23 14:45 | US ---
EXAMINATION TYPE: US thyroid st tissue head/neck DATE OF EXAM: 05/23/2018 COMPARISON: US & CT CLINICAL HISTORY: E04.9 Goiter. Pt states left neck bulging x 1 month GLAND SIZE: Left Lobe: 5.6 x 2.0 x 2.4 cm Overall Parenchyma: heterogeneous Isthmus Thickness: 0.4 cm Bilateral neck scanned, no evidence of lymphadenopathy. Right lobe surgically absent, lymph node with in right thyroid bed= 0.5 cm AP measurement. Left lobe enlarged, heterogeneous, and hypervascular. IMPRESSION: 1. Right thyroidectomy. Hypervascular lymph node is seen within the thyroidectomy bed measuring 1.8 x 0.5 cm. If there is history of right thyroid malignancy this lymph node would be viewed with suspici on and fine-needle aspiration could be performed. 2. Hypervascular and enlarged left thyroid gland may clinically correlate with thyroiditis.
== END ==
LOC: RADUSWWP 12:14
PROVIDERS: ATTEND Surgery
DX: E04.9 Nontoxic goiter, unspecified (principal); Z90.89 Acquired absence of other organs; Z85.850 Personal history of malignant neoplasm of thyroid
CPT/HCPCS: 76536

== ENCOUNTER → 2018-06-04 | Outpatient (CLI) | payer OTHER ==
--- NOTE | 2018-06-05 10:13 | NM ---
EXAMINATION TYPE: NM thyroid image w uptake DATE OF EXAM: 06/05/2018 COMPARISON: Prior nuclear medicine thyroid uptake and scan 06/06/2011, thyroid ultrasound 05/23/2018 HISTORY: Goiter TECHNIQUE: Thyroid iodine uptake is calculated and images performed after the oral administration of 302 uCi 1-123 Capsule. FINDINGS: There is increased activity within the left lobe, near absent right lobe. Minimal uptake n oted may represent some residual thyroid tissue in the right lobe. The 4 hour iodine uptake is calcul ated at 41.9% (normal range 8-14%). The 24-hour iodine uptake is calculated at 57.7% (normal range 15 -35%). IMPRESSION: Correlate for thyroiditis, Graves' disease, additional findings above
== END ==
LOC: RADNMMAIN 08:54
PROVIDERS: ATTEND Family Medicine
DX: R22.1 Localized swelling, mass and lump, neck (principal)
CPT/HCPCS: 78014; A9516

== ENCOUNTER 2018-06-06 10:12 | Day surgery (SDC) | payer OTHER ==
[2018-06-06] MEDS ORDERED: ALPRAZolam 0.5 MG TAB PO STA (12:44)
[2018-06-06 14:18] VITALS: RESP 16; TEMP 98.1
[2018-06-06 14:19] VITALS: BP 110/68; PULSE 56
--- NOTE | 2018-06-06 16:45 | US ---
EXAMINATION TYPE: US FNA first lesion DATE OF EXAM: 06/06/2018 HISTORY: Status post right hemithyroidectomy. Abnormal ultrasound FINDINGS: Maximal barrier technique was utilized. The skin overlying a suitable path to the patient' s lymph node in the right thyroid bed was localized with ultrasound and the overlying skin prepped an d draped. Ultrasound was utilized with sterile technique. Lidocaine was used for local anesthesia. A single pass with a 25-gauge needle was made into the ultrasound guidance and aspirate specimen subm itted to cytology. Following the procedure, hemostasis achieved and the patient is discharged in stab le condition without complication. IMPRESSION:STATUS POST ULTRASOUND GUIDED FINE-NEEDLE ASPIRATION OF LYMPH NODE DESCRIBED IN THE RIG HT NECK, PATHOLOGY IS PENDING. THIS PROCEDURE IS PERFORMED BY THE UNDERSIGNED.
== END 2018-06-06 14:05 | disposition home or self-care (01) ==
LOC: RADPROMAIN 10:12
PROVIDERS: ATTEND Surgery
DX: R93.89 Abnormal findings on diagnostic imaging of other specified body structures (principal); Z98.890 Other specified postprocedural states
CPT/HCPCS: 10005; 88173; 88305

== ENCOUNTER → 2018-12-15 | Outpatient (CLI) | payer OTHER ==
--- NOTE | 2018-12-15 10:09 | US ---
EXAMINATION TYPE: US thyroid st tissue head/neck DATE OF EXAM: 12/15/2018 COMPARISON: NONE CLINICAL HISTORY: E04.1 thyroid nodule. Thyroid nodule. Right thyroid removed 8 years ago. GLAND SIZE: Right Lobe: Surgically absent cm Left Lobe: 4.8 x 1.3 x 2.0 cm Overall Parenchyma: heterogeneous Isthmus Thickness: .2 cm NODULES RIGHT: Hypoechoic area seen right thyroid bed 1.8 x .5 x .5 cm. LEFT: # of nodules measured on left: 0 ISTHMUS: # of nodules measured in the isthmus: 0 Bilateral neck scanned, no evidence of lymphadenopathy. Stable hypoechoic area right thyroid bed favors a benign lymph node given subcentimeter appearance sh ort axis and stability. Heterogeneous normal sized left thyroid remnant without new nodule. IMPRESSION: As above, overall stable findings.
== END | disposition home or self-care (01) ==
LOC: RADUSWWP 08:58
PROVIDERS: ATTEND Surgery
DX: E04.1 Nontoxic single thyroid nodule (principal); E89.0 Postprocedural hypothyroidism
CPT/HCPCS: 76536

== ENCOUNTER 2019-11-12 10:20 | Emergency (ER) | payer OTHER ==
[2019-11-12] MEDS ORDERED: PROPARACAINE 0.5% OPHTH DROPS 15 ML BTL BOTH EYES STA (10:25)
[2019-11-12] MEDS ORDERED: FLUORESCEIN STRIPS 1 MG STRIP BOTH EYES ONE (10:31)
--- NOTE | 2019-11-12 10:33 | ED ---
Eye Problem HPI - General Chief complaint: Eye Problems Stated complaint: Left eye swollen Time Seen by Provider: 11/12/19 10:25 Source: patient, RN notes reviewed, old records reviewed Mode of arrival: ambulatory Limitations: no limitations - History of Present Illness Initial comments: Patient is a pleasant 29-year-old female who presents emergency department today for concern for swelling and irritation around the left eye. Patient reports that she had a small pimple that she try to pop this week. She denies any visual changes. She states that she has no pain with extraocular eye movements. She denies any eye pain or drainage. Patient states that it is irritating with the surrounding swelling around the eye. She denies any fevers or chills. Denies any history of resistant skin infections. - Related Data Home Medications Medication Instructions Recorded Confirmed Dextroamphetamine/Amphetamine 20 mg PO BID@0800,1300 05/28/18 11/12/19 [Adderall] Ibuprofen [Motrin] 800 mg PO DAILY PRN 05/28/18 11/12/19 Cyclobenzaprine [Flexeril] 10 mg PO HS PRN 11/12/19 11/12/19 Ergocalciferol [Vitamin D2] 50,000 unit PO Q30D 11/12/19 11/12/19 Omeprazole 20 mg PO DAILY 11/12/19 11/12/19 Previous Rx's Medication Instructions Recorded Cephalexin [Keflex] 500 mg PO Q6HR 7 Days #28 cap 11/12/19 Allergies Allergy/AdvReac Type Severity Reaction Status Date / Time prochlorperazine maleate Allergy Unknown Verified 11/12/19 10:51 [From Compazine] Review of Systems ROS Statement: Those systems with pertinent positive or pertinent negative responses have been documented in the HPI. ROS Other: All systems not noted in ROS Statement are negative. Past Medical History Past Medical History: Asthma, Cancer, GERD/Reflux, Thyroid Disorder Additional Past Medical History / Comment(s): Mild Anemia. known B-thalasemia minor. thyroid ca History of Any Multi-Drug Resistant Organisms: None Reported Past Surgical History: Adenoidectomy, Section, Cholecystectomy, Tonsillectomy Additional Past Surgical History / Comment(s): partial Thyroidectomy. C/S x2 Past Anesthesia/Blood Transfusion Reactions: Postoperative Nausea & Vomiting (PONV) Past Psychological History: ADD/ADHD, Anxiety Smoking Status: Never smoker Past Alcohol Use History: None Reported Past Drug Use History: None Reported - Past Family History Mother Family Medical History: No Reported History General Exam - General Exam Comments Initial Comments: Alert and oriented 29-year-old female. No significant distress. Limitations: no limitations General appearance: alert, in no apparent distress Head exam: Present: atraumatic, normocephalic, normal inspection Eye exam: Present: normal appearance, PERRL, EOMI, periorbital swelling (Patient is left-sided. Orbital swelling. It is minimal. She has a localized pimple on the lateral portion of the eye. No purulent drainage at this time.). Absent: scleral icterus, conjunctival injection ENT exam: Present: normal exam, mucous membranes moist Neck exam: Present: normal inspection. Absent: tenderness, meningismus, lymphadenopathy Respiratory exam: Present: normal lung sounds bilaterally. Absent: respiratory distress, wheezes, rales, rhonchi, stridor Cardiovascular Exam: Present: regular rate, normal rhythm, normal heart sounds. Absent: systolic murmur, diastolic murmur, rubs, gallop, clicks GI/Abdominal exam: Present: soft, normal bowel sounds. Absent: distended, tenderness, guarding, rebound, rigid Extremities exam: Present: normal inspection, full ROM, normal capillary refill. Absent: tenderness, pedal edema, joint swelling, calf tenderness Back exam: Present: normal inspection Neurological exam: Present: alert, oriented X3, CN II-XII intact Psychiatric exam: Present: normal affect, normal mood Course Vital Signs 11/12/19 10:21 Temperature 97.6 F Pulse Rate 69 Respiratory 16 Rate Blood Pressure 118/78 O2 Sat by Pulse 97 Oximetry Medical Decision Making - Medical Decision Making 29-year-old female presents emergency department today for chief complaint of swelling around the left eye. She is instructed by movements. 4 scene eye exam appears normal. Visual acuity is intact or signs that should fact she wears glasses. At this time Patient has a small pimple near the left periorbital area. Discussed this likely some periorbital cellulitis irritation related to the cheondoism. We'll start the Patient on Keflex at this time has had no history of resistant skin infection. Advised follow-up with primary care doctor if symptoms continue persist or worsen. Given a note for work as well. Disposition Clinical Impression: Periorbital cellulitis of left eye, Skin pimple Disposition: HOME SELF-CARE Condition: Good Instructions (If sedation given, give patient instructions): Periorbital Cellulitis in Adults (ED) Additional Instructions: Patient advised to apply warm compresses over the area of the pimple. Take the antibiotics as prescribed. Return to the emergency department if any alarming signs or symptoms occur. Prescriptions: Cephalexin [Keflex] 500 mg PO Q6HR 7 Days #28 cap Is patient prescribed a controlled substance at d/c from ED?: No Referrals: Marco Amato MD [Primary Care Provider] - 1-2 days Time of Disposition: 10:58
[2019-11-12] MEDS ORDERED: CEPHALEXIN 500MG STARTER PACK 4 CAP BTL PO STA (10:59)
[2019-11-12 11:37] VITALS: BP 122/88; PULSE 66; RESP 18; TEMP 97.8
== END 2019-11-12 11:39 | disposition home or self-care (01) ==
LOC: EC 10:20
DX: L03.213 Periorbital cellulitis (principal); R23.8 Other skin changes; K21.9 Gastro-esophageal reflux disease without esophagitis; F90.9 Attention-deficit hyperactivity disorder, unspecified type; Z79.899 Other long term (current) drug therapy; Z88.8 Allergy status to other drugs, medicaments and biological substances; Z85.850 Personal history of malignant neoplasm of thyroid
CPT/HCPCS: 99283

== ENCOUNTER → 2020-07-21 | Outpatient (CLI) | payer OTHER ==
--- NOTE | 2020-07-22 07:40 | MR ---
EXAMINATION TYPE: MR cervical spine wo con DATE OF EXAM: 07/21/2020 COMPARISON: None HISTORY: Neck pain, headaches, BUE weakness x 2 years. CONTRAST: None. TECHNIQUE: Multiplanar multiecho imaging on a 3.0 Elzbieta magnet is performed through the cervical spin e. FINDINGS: The craniovertebral junction is normal. Vertebral body alignment has kyphosis centered at approximately C3-4. Some lordosis in the lower cervical spine is present. AP projection appears francisca l. There may be some mild disc bulge present C3-4 with mild anterior thecal sac impression. No AP spinal canal stenosis is present. No cord contact is evident. Neural foramen are patent. Very minimal disc bulge may be present C4-5 without significant thecal sac compression cord contact or spinal canal ivan nosis. Disc heights appear preserved. Vertebral body heights are preserved. Spinal cord maintains normal sig nal throughout its visualized course. Incidental note is made of a disc herniation T2-T3 with extension beyond the endplate of T2 in the sa gittal plane. No obvious cord contact is evident. This level was not evaluated with MRI in the axial plane. IMPRESSIONS: 1. Kyphosis of the upper cervical spine. 2. Minimal disc bulging present C3-4 and possibly C4-5. 3. Note is made of a T2-T3 disc herniation.
== END | disposition home or self-care (01) ==
LOC: RADMRIMAIN 10:45
PROVIDERS: ATTEND Orthopaedic Surgery
DX: M50.21 Other cervical disc displacement, high cervical region (principal); M51.24 Other intervertebral disc displacement, thoracic region
CPT/HCPCS: 72141

== ENCOUNTER → 2020-08-17 | Outpatient (CLI) | payer OTHER ==
--- NOTE | 2020-08-17 10:18 | CT ---
EXAMINATION TYPE: CT cervical spine wo con DATE OF EXAM: 08/17/2020 COMPARISON: 07/06/2018 soft tissue neck HISTORY: posterior neck mass (marked by bb), neck pain, history of thyroid cancer CT DLP: 397 mGycm CONTRAST: None CT of the cervical spine is performed in the axial plane at 2 mm thick sections. Reconstructed image s in the coronal, and sagittal plane are reviewed on the computer. No acute fractures are evident. There is a cervical kyphosis present centered at approximately C3-4. Disc heights are preserved. Vertebral body heights are preserved. No spinal canal stenosis is evident No neural foraminal stenosis is evident. Posterior right neck as marked by BB. This is approximately the C2-C3 level posteriorly. No discrete mass is evident. There are scattered tiny lymph nodes present within the posterior neck. IMPRESSIONS: 1. Normal CT cervical spine.
== END | disposition home or self-care (01) ==
LOC: RADCTMAIN 08:17
PROVIDERS: ATTEND Internal Medicine Rheumatology
DX: R22.1 Localized swelling, mass and lump, neck (principal); M54.2 Cervicalgia; Z85.850 Personal history of malignant neoplasm of thyroid
CPT/HCPCS: 72125

== ENCOUNTER → 2021-02-03 | Outpatient (CLI) | payer OTHER ==
--- NOTE | 2021-02-03 16:42 | US ---
EXAMINATION TYPE: US thyroid st tissue head/neck DATE OF EXAM: 02/03/2021 COMPARISON: NONE CLINICAL HISTORY: E04.1 THYROID NODULE. GLAND SIZE: Right Lobe: Surgically absent Left Lobe: 4.9 x 1.4 x 2.0 cm Overall Parenchyma: homogeneous Isthmus Thickness: 0.2 cm NODULES RIGHT: # of nodules measured on right: 0 LEFT: # of nodules measured on left: 0 Bilateral neck scanned, no evidence of lymphadenopathy. Right thyroid fossa shows hypoechoic focus measuring 0.8 x 0.4 x 0.4cm, possible enlarged lymph node, stable. IMPRESSION: Benign and stable thyroid ultrasound
== END | disposition home or self-care (01) ==
LOC: RADUSWWP 16:16
PROVIDERS: ATTEND Surgery
DX: E04.1 Nontoxic single thyroid nodule (principal)
CPT/HCPCS: 76536

== ENCOUNTER → 2022-03-09 | Outpatient (CLI) | payer OTHER ==
--- NOTE | 2022-03-10 07:54 | US ---
EXAMINATION TYPE: US thyroid st tissue head/neck DATE OF EXAM: 03/09/2022 COMPARISON: Ultrasound 02/03/2021 CLINICAL HISTORY: E04.1 Thyroid nodule. GLAND SIZE: Right Lobe: Surgically absent Left Lobe: 5.0 x 1.2 x 2.4 cm Overall Parenchyma: heterogeneous Isthmus Thickness: 0.2 cm NODULES RIGHT: # of nodules measured on right: 2 1. 0.8 X 0.3 x 0.4 cm, upper mid, this has the appearance of a lymph node 2. 1.0 X 0.3 x 0.4 cm, lower mid, this has the appearance of a lymph node LEFT: # of nodules measured on left: 0 ISTHMUS: # of nodules measured in the isthmus: 0 Bilateral neck scanned, no evidence of lymphadenopathy. IMPRESSION: Stable suspected right neck lymph nodes. No evidence for recurrence or suspicious nodule.
== END | disposition home or self-care (01) ==
LOC: RADUSWWP 16:53
PROVIDERS: ATTEND Surgery
DX: E04.1 Nontoxic single thyroid nodule (principal)
CPT/HCPCS: 76536

== ENCOUNTER → 2023-03-11 | Outpatient (CLI) | payer BC ==
--- NOTE | 2023-03-11 20:47 | US ---
EXAMINATION TYPE: US thyroid st tissue head/neck DATE OF EXAM: 03/11/2023 COMPARISON: 03/09/2022. CLINICAL INDICATION: Female, 32 years old with history of E04.1 NONTOXIC SINGLE THYROID NODULE; Right thyroidectomy - on thyroid medications GLAND SIZE: Right Lobe: Surgically absent cm Overall Parenchyma: NA Left Lobe: 5.2 x 1.5 x 2.2 cm Overall Parenchyma: homogeneous Isthmus Thickness: NAcm NODULES RIGHT: Surgically Absent ? Lymph nodes redemonstrated within right thyroid fossa Sup = 1.0 x 0.5 x 0.6 cm Inf = 1.1 x 0.5 x 0.8 cm LEFT: # of nodules noted on the left: 2 subcentimeter and predominantly hypoechoic. Attention foll ow-up imaging. Bilateral neck scanned, no evidence of lymphadenopathy. IMPRESSION: 1. A couple less than 1.0 cm thyroid nodules visualized and not definitively seen on prior. Attentio n follow-up imaging. 2. Redemonstration of lymph nodes within the right surgical bed.
== END | disposition home or self-care (01) ==
LOC: RADUSWWP 16:51
PROVIDERS: ATTEND Surgery
DX: E04.2 Nontoxic multinodular goiter (principal); Z90.89 Acquired absence of other organs
CPT/HCPCS: 76536

== ENCOUNTER → 2024-07-23 | Outpatient (CLI) | payer BC ==
--- NOTE | 2024-07-23 11:01 | US ---
EXAMINATION TYPE: US thyroid st tissue head/neck DATE OF EXAM: 07/23/2024 COMPARISON: Multiple thyroid ultrasounds with most recent 03/11/2023 CLINICAL INDICATION: Female, 33 years old with history of E04.1 THYROID NODULE; F/U TECHNIQUE: Grayscale and color Doppler imaging of the thyroid gland. FINDINGS: GLAND SIZE: Right Lobe: Surgically absent Left Lobe: 4.9 x 1.5 x 2.0 cm Overall Parenchyma: Slightly heterogeneous Isthmus Thickness: 0.3 cm NODULES RIGHT: # of nodules measured on right: Probable lymph node within right thyroid bed, unchanged when compared to prior scans= 1.1 x 0.4 x 0.5 cm LEFT: # of nodules measured on left: 1 1. 0.4 X 0.3 x 0.4 cm, upper, solid or almost completely solid, hypoechoic nodule, which is wider t viveros tall, with smooth margins, without echogenic foci. TR 4. Prior size: 0.5 x 0.3 x 0.5 cm ISTHMUS: # of nodules measured in the isthmus: 0 Bilateral neck scanned, no evidence of lymphadenopathy. Findings unchanged when compared to prior. IMPRESSION: 1. Postsurgical changes from right thyroidectomy with stable probable lymph node within the right vann rgical bed. No new nodule. 2. Relatively stable left thyroid lobe TR 4 subcentimeter nodule. No new nodule. Highest TI-RADS level nodule reported: ACR TI-RADS LEVEL: TI-RADS 4 - Follow if > 1 cm, FNA if > 1.5 cm [facility], , 07/23/2024 10:59 AM
== END | disposition home or self-care (01) ==
LOC: RADUSWWP 10:17
PROVIDERS: ATTEND Surgery
DX: E04.1 Nontoxic single thyroid nodule (principal); E89.0 Postprocedural hypothyroidism
CPT/HCPCS: 76536